=== PATIENT | male | born 1985 | race Caucasian/White ===

== ENCOUNTER 2017-01-22 13:47 | Emergency (ER) | payer SELFPAY ==
[2017-01-22 14:04] VITALS: BP 125/83
--- NOTE | 2017-01-22 14:25 | UC ---
UC General HPI - HPI Summary HPI Summary: complaint of pimple with ingrown hair that started 6 days ago he popped it approx 3 days ago and it isn't healing lip is still swollen sometimes it is painful and feels denies fever and chills denies headache - History of Current Complaint Chief Complaint: UCSkin Stated Complaint: RED SWOLLEN AREA ON LIP Time Seen by Provider: 01/22/17 14:18 Hx Obtained From: Patient - Allergy/Home Medications Allergies/Adverse Reactions: Allergies Allergy/AdvReac Type Severity Reaction Status Date / Time No Known Allergies Allergy Verified 04/25/16 16:25 Home Medications: Home Medications Buprenorphine HCl-Naloxone HCl [Suboxone 8-2 mg] 01/22/17 [History] Clonidine HCl [Catapres 0.3 MG TAB] 01/22/17 [History] Gabapentin TAB(NF) [Neurontin 600 mg TAB(NF)] 01/22/17 [History] PMH/Surg Hx/FS Hx/Imm Hx Previously Healthy: Yes - Surgical History Surgical History: Yes Surgery Procedure, Year, and Place: L rotator cuff surgery - Family History Family History: NON CONTRIBUTORY - Social History Occupation: Employed Full-time Lives: With Family Alcohol Use: None Substance Use Type: None Smoking Status (MU): Heavy Every Day Tobacco Smoker Review of Systems Constitutional: Negative Skin: Other - lip swelling Eyes: Negative ENT: Negative Respiratory: Negative Cardiovascular: Negative Gastrointestinal: Negative Genitourinary: Negative Motor: Negative Neurovascular: Negative Musculoskeletal: Negative Neurological: Negative Psychological: Negative All Other Systems Reviewed And Are Negative: Yes Physical Exam Triage Information Reviewed: Yes Appearance: No Pain Distress, Well-Nourished Vital Signs: Initial Vital Signs Temp 98.5 F 01/22/17 13:58 Pulse 84 01/22/17 13:58 Resp 16 01/22/17 13:58 BP 125/83 01/22/17 13:58 Pulse Ox 99 01/22/17 13:58 Vital Signs Reviewed: Yes Eyes: Positive: Conjunctiva Clear ENT: Positive: Pharynx normal, TMs normal Neck: Positive: No Lymphadenopathy Respiratory: Positive: Lungs clear, Normal breath sounds, No respiratory distress Cardiovascular: Positive: RRR, No Murmur Musculoskeletal Exam: Normal Neurological: Positive: Alert Psychological Exam: Normal Skin: Positive: Other - right upper lip- 1x1cm area of erythema and edema- no induration Course/Dx - Differential Dx - Multi-Symptom Provider Diagnoses: folliculitis/cellulitis upper right upper lip Discharge - Discharge Plan Condition: Stable Disposition: HOME Prescriptions: DOXYcycline CAP(*) [DOXYcycline 100MG CAP(*)] 100 mg PO BID #20 cap Mupirocin 2% OINT* [Bactroban 2 % Oint*] 1 applic TOPICAL BID #1 tube Patient Education Materials: Folliculitis (ED) Forms: *Work Release Referrals: Patricio Wright MD [Primary Care Provider] - Additional Instructions: Start antibiotic as directed apply ointment to upper lip as directed Increase fluids and rest Take acetaminophen or ibuprofen for fever or pain Please review your discharge instructions. If your symptoms do not improve please call your primary care provider or return to urgent care
== END 2017-01-22 15:10 | disposition home or self-care (01) ==
LOC: UCEAST 13:47
DX: L73.9 Follicular disorder, unspecified (principal); K13.0 Diseases of lips; F17.210 Nicotine dependence, cigarettes, uncomplicated
CPT/HCPCS: 99212; G0463

== ENCOUNTER 2017-03-07 17:36 | Emergency (ER) | payer SELFPAY ==
[2017-03-07 18:07] VITALS: BP 132/82
[2017-03-07] MEDS ORDERED: Cephalexin CAP* 500 MG PO ONE (19:14)
[2017-03-07] MEDS ORDERED: Tetan/Diph/Pertus SYR(Tdap)* 0.5 ML SYR(BOOSTRIX) use SYR IM ONE (19:14)
[2017-03-07] MEDS ORDERED: Sulfamethox/Trimethoprim DS 800/160* TAB PO ONE (19:14)
[2017-03-07] MEDS ORDERED: Naproxen TAB* 250 MG PO ONE (19:15)
--- NOTE | 2017-03-07 19:27 | UC ---
Skin Complaint HPI - HPI Summary HPI Summary: 31 male states he sustained a trivial lacertion on the dorsum of his right wrist at work days ago he has been picking at it today with increased pain/redness and swelling no f/c no n/v/d denies hx MRSA Td not up to date - History of Current Complaint Chief Complaint: UCWounds Time Seen by Provider: 03/07/17 19:09 Stated Complaint: WRIST LAC Hx Obtained From: Patient Onset/Duration: Gradual Onset, Lasting Hours Timing: Constant Onset Severity: Mild Current Severity: Moderate Pain Intensity: 6 Pain Scale Used: 0-10 Numeric Location: Discrete Character: Swelling, Pain, Redness Aggravating: Touch Associated Signs & Symptoms: Positive: Tenderness Related History: Trauma Similar Episode/Dx as: cellulitis - Allergy/Home Medications Allergies/Adverse Reactions: Allergies Allergy/AdvReac Type Severity Reaction Status Date / Time No Known Allergies Allergy Verified 03/07/17 18:03 Review of Systems Constitutional: Negative Skin: Negative Eyes: Negative ENT: Negative Respiratory: Negative Cardiovascular: Negative Gastrointestinal: Negative Genitourinary: Negative Motor: Negative Neurovascular: Negative Musculoskeletal: Negative Neurological: Negative Psychological: Negative All Other Systems Reviewed And Are Negative: Yes PMH/Surg Hx/FS Hx/Imm Hx Previously Healthy: Yes - Surgical History Surgical History: Yes Surgery Procedure, Year, and Place: L rotator cuff surgery - Family History Known Family History: Positive: Hypertension Family History: NON CONTRIBUTORY - Social History Alcohol Use: None Substance Use Type: Heroin Substance Use Comment - Amount & Last Used: Last use 03/07/17 Smoking Status (MU): Heavy Every Day Tobacco Smoker Amount Used/How Often: 1 PPD Physical Exam Triage Information Reviewed: Yes Appearance: Well-Appearing, No Pain Distress, Well-Nourished Vital Signs: Initial Vital Signs Temp 98.9 F 03/07/17 18:03 Pulse 85 03/07/17 18:03 Resp 16 03/07/17 18:03 BP 132/82 03/07/17 18:03 Pulse Ox 100 03/07/17 18:03 Vital Signs Reviewed: Yes Eyes: Positive: Conjunctiva Clear ENT: Positive: Hearing grossly normal. Negative: Nasal congestion, Nasal drainage, Trismus, Muffled/hoarse voice Neck: Positive: Supple, Nontender, No Lymphadenopathy Respiratory: Positive: Lungs clear, Normal breath sounds, No respiratory distress, No accessory muscle use Cardiovascular: Positive: RRR, No Murmur Musculoskeletal: Positive: Other: - see image Neurological: Positive: Alert Psychological: Positive: Normal Response To Family Skin Exam: Other - see image Course/Dx - Diagnoses Provider Diagnoses: left wrist cellulitus Discharge - Discharge Plan Condition: Stable Disposition: HOME Prescriptions: Cephalexin CAP* [Keflex CAP*] 500 mg PO QID #28 cap Naproxen [Naproxen 500 MG TABS] 500 mg PO BID PRN #30 tab PRN Reason: Pain Sulfamethox/Trimethoprim DS* [Bactrim DS 800/160 TAB*] 1 tab PO BID #14 tab Patient Education Materials: Cellulitis (ED) Forms: *Work Release Referrals: [facility] [place] [facility] REFERRAL [Outside] - As Soon As Possible Additional Instructions: warm soapy soaks 2-4 x day elevate elevate elevate to er for FEVER INCREASED PAIN VOMITING a wound culture is pending recheck here in 48 hours Images Hands: 1 - open area with crust 2 - redness/edema to here Front/Back of Body, Lg (Stanly): 1 - erthema /swelling, no adenopathy/no crepitus/FROM
== END 2017-03-07 19:39 | disposition home or self-care (01) ==
LOC: UCEAST 17:36
DX: S61.511A Laceration without foreign body of right wrist, initial encounter (principal); L03.113 Cellulitis of right upper limb; X58.XXXA Exposure to other specified factors, initial encounter; Y93.9 Activity, unspecified; Y92.89 Other specified places as the place of occurrence of the external cause; Y99.0 Civilian activity done for income or pay; Z23 Encounter for immunization; F17.210 Nicotine dependence, cigarettes, uncomplicated
CPT/HCPCS: 87070; 87077; 87186; 87205; 90471; 90715; 99212; A9270-GY; G0463

== ENCOUNTER 2017-03-09 11:28 | Emergency (ER) | payer OTHER ==
[2017-03-09 12:39] VITALS: BP 146/96
[2017-03-09] MEDS ORDERED: Lidocaine 2% PF * 5 ML VIAL INJ ONE (12:59)
--- NOTE | 2017-03-09 13:10 | UC ---
HPI Wound/Suture Re-check - HPI Summary HPI Summary: 31 yo male returns here as directed for recheck of right wrist infection redness and swelling has decreased but is localized now no f/c no n/v/d - History Of Current Complaint Chief Complaint: UCWounds Stated Complaint: WOUND RECHECK Time Seen by Provider: 03/09/17 12:53 Hx Obtained From: Patient Onset/Duration: Gradual Onset, Lasting Days Severity: Mild Pain Intensity: 3 - feols tight Pain Scale Used: 0-10 Numeric - Allergies/Home Medications Allergies/Adverse Reactions: Allergies Allergy/AdvReac Type Severity Reaction Status Date / Time No Known Allergies Allergy Verified 03/09/17 12:39 PMH/Surg Hx/FS Hx/Imm Hx Previously Healthy: Yes - Surgical History Surgical History: Yes Surgery Procedure, Year, and Place: L rotator cuff surgery - Family History Known Family History: Positive: Hypertension Family History: NON CONTRIBUTORY - Social History Alcohol Use: Occasionally Substance Use Type: Heroin Substance Use Comment - Amount & Last Used: Last use 03/08/17 Smoking Status (MU): Heavy Every Day Tobacco Smoker Amount Used/How Often: 1 PPD Household Exposure Type: Cigarettes Review of Systems Constitutional: Negative Skin: Negative Eyes: Negative ENT: Negative Respiratory: Negative Cardiovascular: Negative Gastrointestinal: Negative Genitourinary: Negative Motor: Negative Neurovascular: Negative Musculoskeletal: Negative Neurological: Negative Psychological: Negative All Other Systems Reviewed And Are Negative: Yes Physical Exam Triage Information Reviewed: Yes Appearance: Well-Appearing, No Pain Distress, Well-Nourished Vital Signs: Initial Vital Signs Temp 98.4 F 03/09/17 12:35 Pulse 100 03/09/17 12:35 Resp 18 03/09/17 12:35 BP 146/96 03/09/17 12:35 Pulse Ox 99 03/09/17 12:35 Eyes: Positive: Conjunctiva Clear ENT: Positive: Hearing grossly normal. Negative: Nasal congestion, Nasal drainage, Trismus, Muffled/hoarse voice Neck: Positive: Supple, Nontender Respiratory: Positive: Lungs clear, Normal breath sounds Cardiovascular: Positive: RRR, No Murmur Musculoskeletal: Positive: Other: - see image Neurological: Positive: Alert Psychological Exam: Normal Skin Exam: Other - see image Procedures - Procedure Summary Procedure Summary: INCISION AND DRAINAGE of right wrist pt came here expecting I &D time out sterile prep anest with 1 cc lidocaine incised with 18 g needle sero-sanginuous fluid expressed culture obtained sterile dressing - Incision and Drainage Site: dorsum of right wrist Anesthesia: Local Instrument(s): Needle Course/Dx - Differential Dx - Laceration/Wound Provider Diagnoses: right wrist cellulitis. early abscess Discharge - Discharge Plan Condition: Stable Disposition: HOME Patient Education Materials: Cellulitis (ED) Forms: *Work Release Additional Instructions: continue both antibiotics continue warm soaks recheck in 2 days (unless you are markedly better) Images Hands: 1 - eschar 2 - red/indurated
--- NOTE | 2017-03-12 07:42 | UC ---
Progress - Progress Note Progress Note: Cx + MRSA. Con't abx as previously prescribed. RN to call pt with cx results and MRSA precautions.
== END 2017-03-09 13:35 | disposition home or self-care (01) ==
LOC: UCEAST 11:28
DX: L03.113 Cellulitis of right upper limb (principal); L02.413 Cutaneous abscess of right upper limb; F17.210 Nicotine dependence, cigarettes, uncomplicated
CPT/HCPCS: 87070; 87077; 87186; 87205; 87640; 87641; 99211; G0463

== ENCOUNTER 2017-10-29 07:51 | Emergency (ER) | payer OTHER ==
[2017-10-29 08:02] VITALS: BP 131/81
--- NOTE | 2017-10-29 08:23 | UC ---
Skin Complaint HPI - HPI Summary HPI Summary: 32 yo WM c/o right lower cheek skin infection after popping a pimple about one week ago now red warm and swollen,tender. Denies f/c and drainage - History of Current Complaint Chief Complaint: UCSkin Time Seen by Provider: 10/29/17 08:13 Stated Complaint: RED AREA ON SIDE OF FACE Hx Obtained From: Patient Onset/Duration: Gradual Onset Skin Exposure Onset/Duration: Days Ago Onset Severity: Moderate Current Severity: Moderate - Allergy/Home Medications Allergies/Adverse Reactions: Allergies Allergy/AdvReac Type Severity Reaction Status Date / Time No Known Allergies Allergy Verified 10/29/17 07:57 Home Medications: Home Medications Buprenorphine/Naloxone SL TAB* [Suboxone 8-2 mg SL TAB*] 16 mg SL DAILY [History Confirmed 10/29/17] Review of Systems Constitutional: Negative Skin: Other - SEE HPI Eyes: Negative ENT: Negative Respiratory: Negative Cardiovascular: Negative Gastrointestinal: Negative Genitourinary: Negative Motor: Negative Neurovascular: Negative Musculoskeletal: Negative Neurological: Negative Psychological: Negative All Other Systems Reviewed And Are Negative: Yes PMH/Surg Hx/FS Hx/Imm Hx Previously Healthy: Yes - Surgical History Surgical History: Yes Surgery Procedure, Year, and Place: L rotator cuff surgery - Family History Known Family History: Positive: Hypertension Family History: NON CONTRIBUTORY - Social History Alcohol Use: None Substance Use Type: None, Heroin Substance Use Comment - Amount & Last Used: Last use 03/08/17 Smoking Status (MU): Heavy Every Day Tobacco Smoker Amount Used/How Often: 1 PPD Household Exposure Type: Cigarettes Physical Exam Triage Information Reviewed: Yes Appearance: No Pain Distress Vital Signs: Initial Vital Signs Temp 37.7 C 10/29/17 07:59 Pulse 89 10/29/17 07:59 Resp 18 10/29/17 07:59 BP 131/81 10/29/17 07:59 Pulse Ox 100 10/29/17 07:59 Eye Exam: Normal ENT Exam: Normal Dental Exam: Normal Neck exam: Normal Neck: Positive: 1 Respiratory Exam: Normal Cardiovascular Exam: Normal Abdominal Exam: Normal Musculoskeletal Exam: Normal Neurological Exam: Normal Psychological Exam: Normal Skin Exam: Normal Skin: Positive: significant lesion(s) - 3x4cm right buccal and mandibular cellulitis withe central area of skin scabbed over, no d/c noted Course/Dx - Differential Diagnoses - Skin Complaint Differential Diagnoses: Abscess, Cellulitis - Diagnoses Provider Diagnoses: facial cellulitis Discharge - Discharge Plan Condition: Critical Disposition: HOME Prescriptions: Cephalexin CAP* [Keflex CAP*] 500 mg PO QID 10 Days #40 cap Patient Education Materials: Furunculosis and Carbunculosis (ED) Referrals: No Primary Care Phys,NOPCP [Primary Care Provider] - Additional Instructions: RTC if wound becomes more fluctuant for I&D after course of abx
== END 2017-10-29 08:37 | disposition home or self-care (01) ==
LOC: UCEAST 07:51
DX: L03.211 Cellulitis of face (principal); F17.290 Nicotine dependence, other tobacco product, uncomplicated
CPT/HCPCS: 99212; G0463

== ENCOUNTER 2018-05-05 16:57 | Emergency (ER) | payer OTHER ==
--- NOTE | 2018-05-05 17:54 | RAD ---
INDICATION: Left rib pain COMPARISON: None TECHNIQUE: Multiple views of the ribs were obtained. FINDINGS: Bones: There is no evidence of acute rib fracture. LUNGS: The lungs are clear. There is no pneumothorax. Pleural spaces: There is no evidence of hemothorax. Other: None IMPRESSION: NO ACUTE RIB FRACTURE.
[2018-05-05 18:47] VITALS: BP 00/00
--- NOTE | 2018-05-05 19:22 | ED ---
Back Pain - HPI Summary HPI Summary: Patient is a 32-year-old male with no significant PMH presenting to the ED 2 weeks after left-sided upper back pain. He states pain is directly under the scapula on the left. He states he was in the back of a pickup when he strained the area going over a bump. He reinjured the area yesterday and heard a "pop." He is concerned over a rib fracture. He has been taking ibuprofen without relief. He continues to go to work and states he has to lift heavy objects for his job. - History of Current Complaint Chief Complaint: EDBackInjuryPain Stated Complaint: BACK PAIN Time Seen by Provider: 05/05/18 17:18 Hx Obtained From: Patient Onset/Duration: Sudden Onset Onset/Duration: Started Hours Ago Timing: Constant Back Pain Location: Is Discrete @ - left upper back Severity Initially: Moderate Severity Currently: Moderate Pain Intensity: 0 Pain Scale Used: 0-10 Numeric Character: Aching Alleviating Symptom(s): Rest Associated Signs And Symptoms: Negative: Swelling, Redness, Bruising - Risk Factors AAA Risk Factors: Negative TAD Risk Factors: Negative Cauda Equina Risk Factors: Negative Epidural Abscess Risk Factors: Negative - Allergies/Home Medications Allergies/Adverse Reactions: Allergies Allergy/AdvReac Type Severity Reaction Status Date / Time No Known Allergies Allergy Verified 05/05/18 17:04 PMH/Surg Hx/FS Hx/Imm Hx Previously Healthy: Yes - Surgical History Surgery Procedure, Year, and Place: L rotator cuff surgery - Immunization History Hx Pertussis Vaccination: No Immunizations Up to Date: Unable to Obtain/Confirm Infectious Disease History: No Infectious Disease History: Denies: Hx Clostridium Difficile, Hx Hepatitis, Hx Human Immunodeficiency Virus (HIV), Hx of Known/Suspected MRSA, Hx Shingles, Hx Tuberculosis, Hx Known/ Suspected VRE, Hx Known/Suspected VRSA, History Other Infectious Disease, Traveled Outside the [place] in Last 30 Days - Family History Known Family History: Positive: Hypertension Family History: NON CONTRIBUTORY - Social History Occupation: Employed Full-time Lives: With Family Alcohol Use: None Hx Substance Use: No Substance Use Type: Reports: None Substance Use Comment - Amount & Last Used: Last use 03/08/17 Hx Tobacco Use: Yes Smoking Status (MU): Heavy Every Day Tobacco Smoker Amount Used/How Often: 1 PPD Review of Systems Constitutional: Negative Negative: Fever, Chills, Fatigue, Skin Diaphoresis Negative: Palpitations Negative: Shortness Of Breath, Cough Genitourinary: Negative Positive: no symptoms reported, see HPI Positive: Arthralgia - left rib cage Skin: Negative Neurological: Negative All Other Systems Reviewed And Are Negative: Yes Physical Exam Triage Information Reviewed: Yes Vital Signs On Initial Exam: Initial Vitals Temp Pulse Resp BP Pulse Ox 98.6 F 77 14 148/66 97 05/05/18 17:00 05/05/18 17:00 05/05/18 17:00 05/05/18 17:00 05/05/18 17:00 Vital Signs Reviewed: Yes Appearance: Positive: Well-Appearing, Well-Nourished Skin: Positive: Warm, Skin Color Reflects Adequate Perfusion Head/Face: Positive: Normal Head/Face Inspection Neck: Positive: Supple, No Lymphadenopathy Respiratory/Lung Sounds: Positive: Clear to Auscultation Cardiovascular: Positive: RRR, Pulses are Symmetrical in both Upper and Lower Extremities Musculoskeletal: Positive: Strength/ROM Intact Neurological: Positive: Speech Normal Psychiatric: Positive: Normal, Affect/Mood Appropriate AVPU Assessment: Alert Diagnostics - Vital Signs Vital Signs Temp Pulse Resp BP Pulse Ox 05/05/18 18:45 0 F 0 0 00/00 0 05/05/18 17:00 98.6 F 77 14 148/66 97 - Laboratory Lab Statement: Any lab studies that have been ordered have been reviewed, and results considered in the medical decision making process. Back Pain Course/Dx - Course Course Of Treatment: During the course of treatment, the patient is evaluated for left-sided upper back pain just under the scapula. X-ray of the ribs and chest obtained which showed no acute fracture. Patient is able to abduct and abduct at the shoulder, however with some pain. I have encouraged ibuprofen and moist heat as this is likely a strain of the musculature to the area. He is requesting a note for work. - Diagnoses Differential Diagnosis/HQI/PQRI: Positive: Strain, Sprain Provider Diagnoses: Left-sided back pain Discharge - Sign-Out/Discharge Documenting (check all that apply): Discharge/Admit/Transfer - Discharge Plan Condition: Stable Disposition: HOME Forms: *Work Release Referrals: Kita Guido NP [Primary Care Provider] - Additional Instructions: Ibuprofen 600mg three times daily Moist heat to the area - Billing Disposition and Condition Condition: STABLE Disposition: Home
== END 2018-05-05 18:45 | disposition home or self-care (01) ==
LOC: ED 16:57
DX: M54.89 Other dorsalgia (principal); F17.200 Nicotine dependence, unspecified, uncomplicated
CPT/HCPCS: 99282

== ENCOUNTER 2018-10-24 09:57 | Emergency (ER) | payer BC ==
[2018-10-24 12:09] VITALS: BP 137/83
--- NOTE | 2018-10-24 12:18 | UC ---
Throat Pain/Nasal Daniel HPI - HPI Summary HPI Summary: [address], PAIN WITH SWALLOWING AND SUBJECTIVE FEVER. NO COUGH OR CONGESTION. NO N/V. - History of Current Complaint Chief Complaint: UCRespiratory Stated Complaint: THROAT PAIN Time Seen by Provider: 10/24/18 12:06 Hx Obtained From: Patient Onset/Duration: Gradual Onset, Lasting Days, Still Present Severity: Moderate Pain Intensity: 6 Pain Scale Used: 0-10 Numeric Cough: None Associated Signs & Symptoms: Positive: Fever - Allergies/Home Medications Allergies/Adverse Reactions: Allergies Allergy/AdvReac Type Severity Reaction Status Date / Time No Known Allergies Allergy Verified 05/05/18 17:04 PMH/Surg Hx/FS Hx/Imm Hx Previously Healthy: Yes - Surgical History Surgical History: Yes Surgery Procedure, Year, and Place: L rotator cuff surgery - Family History Known Family History: Positive: Hypertension - Social History Alcohol Use: None Substance Use Type: None Substance Use Comment - Amount & Last Used: Last use 03/08/17 Smoking Status (MU): Heavy Every Day Tobacco Smoker Amount Used/How Often: 1 PPD Household Exposure Type: Cigarettes Review of Systems All Other Systems Reviewed And Are Negative: Yes Constitutional: Positive: Fever ENT: Positive: Sore Throat Respiratory: Positive: Negative Cardiovascular: Positive: Negative Gastrointestinal: Positive: Negative Physical Exam Triage Information Reviewed: Yes Appearance: No Pain Distress, Well-Nourished Vital Signs: Initial Vital Signs Temp 98.8 F 10/24/18 10:03 Pulse 83 10/24/18 10:03 Resp 17 10/24/18 10:03 BP 140/89 10/24/18 10:03 Pulse Ox 100 10/24/18 10:03 Laboratory Tests 10/24/18 12:15 Group A Strep Rapid Positive A Vital Signs Reviewed: Yes Eyes: Positive: Conjunctiva Clear ENT: Positive: Hearing grossly normal, Pharyngeal erythema, TMs normal, Tonsillar swelling. Negative: Tonsillar exudate Neck: Positive: Supple, Tenderness @ - SPFL CERVICAL TENDER LAD, Enlarged Nodes @ - SPFL CERVICAL TENDER LAD Respiratory Exam: Normal Cardiovascular Exam: Normal Abdomen Description: Positive: Soft Musculoskeletal: Positive: No Edema Neurological: Positive: Alert Psychological: Positive: Age Appropriate Behavior Skin: Negative: Rashes Throat Pain/Nasal Course/Dx - Differential Dx/Diagnosis Provider Diagnosis: Strep pharyngitis Discharge - Sign-Out/Discharge Documenting (check all that apply): Patient Departure All imaging exams completed and their final reports reviewed: No Studies - Discharge Plan Condition: Stable Disposition: HOME Prescriptions: Amoxicillin PO (*) [Amoxicillin 500 MG CAP*] 1,000 mg PO DAILY #20 cap Patient Education Materials: Strep Throat (ED) Referrals: Kita Guido NP [Primary Care Provider] - If Needed Additional Instructions: STREP POSITIVE. TAKE ANTIBIOTICS FOR THE FULL 10 DAYS. OTC CHLORASEPTIC OR CEPACOL LOZENGES AND/OR IBUPROFEN FOR SORE THROAT NEEDED ONCE SYMPTOMS RESOLVED - NEW TOOTHBRUSH DO NOT SHARE FOOD, DRINK, UTENSILS - Billing Disposition and Condition Condition: STABLE Disposition: Home
== END 2018-10-24 12:25 | disposition home or self-care (01) ==
LOC: UCEAST 09:57
DX: J02.0 Streptococcal pharyngitis (principal); B95.0 Streptococcus, group A, as the cause of diseases classified elsewhere; F17.210 Nicotine dependence, cigarettes, uncomplicated
CPT/HCPCS: 87651; 99212; G0463

== ENCOUNTER 2019-11-16 16:25 | Emergency (ER) | payer BC, OTHER ==
--- NOTE | 2019-11-16 16:35 | UC ---
Dental HPI - HPI Summary HPI Summary: 34 yo male presents with dental pain. He tells me that he has a fracture left upper tooth for several months. Over the last 2-3 days has had increased pain and swelling to left upper tooth. He believes he is developing an infection here. He has been taking tylenol and ibuprofen with good relief of discomfort. He does not have a dentist, but states he has the information to call one - just hasn't done so yet. Denies fever or chills. - History of Current Complaint Stated Complaint: DENTAL PAIN Time Seen by Provider: 11/16/19 16:34 Hx Obtained From: Patient Onset/Duration: Gradual Onset Severity: Mild Pain Intensity: 2 Pain Scale Used: 0-10 Numeric - Allergies/Home Medications Allergies/Adverse Reactions: Allergies Allergy/AdvReac Type Severity Reaction Status Date / Time No Known Allergies Allergy Verified 11/16/19 16:38 PMH/Surg Hx/FS Hx/Imm Hx - Additional Past Medical History Additional PMH: None - Surgical History Surgical History: Yes Surgery Procedure, Year, and Place: L rotator cuff surgery - Family History Known Family History: Positive: Hypertension - Social History Lives: With Family Alcohol Use: None Substance Use Type: None Substance Use Comment - Amount & Last Used: Last use 03/08/17 Smoking Status (MU): Heavy Every Day Tobacco Smoker Amount Used/How Often: 1 PPD Household Exposure Type: Cigarettes Review of Systems All Other Systems Reviewed And Are Negative: No Constitutional: Positive: Negative Skin: Positive: Negative Eyes: Positive: Negative ENT: Positive: Dental Pain Respiratory: Positive: Negative Cardiovascular: Positive: Negative Neurovascular: Positive: Negative Neurological: Positive: Negative Psychological: Positive: Negative Physical Exam - Summary Physical Exam Summary: GENERAL: NAD. WDWN. No pain distress. SKIN: No rashes, sores, lesions, or open wounds. HEENT: Head: AT/NC Eyes: EOM intact. Conjunctiva clear without inflammation or discharge. Ears: Hearing grossly normal. TMs intact, no bulging, erythema, or edema. Nose: Nasal mucosa pink and moist. NTTP maxillary and frontal sinus. Throat: Posterior oropharynx without exudates, erythema, or tonsillar enlargement. Uvula midline. NECK: Supple. Nontender. No lymphadenopathy. CHEST: CTAB. No r/r/w. No accessory muscle use. Breathing comfortably and in no distress. CV: RRR. Pulses intact. Cap refill <2seconds NEURO: Alert. PSYCH: Age appropriate behavior. Triage Information Reviewed: Yes Vital Signs: Vital Signs: Temp Pulse Resp BP Pulse Ox 98 F 89 16 150/92 100 11/16/19 16:34 11/16/19 16:34 11/16/19 16:34 11/16/19 16:34 11/16/19 16:34 Vital Signs Reviewed: Yes Dental: Positive: Gross Decay/Caries @ - throughout, Dental Fracture @ - Tooth # 1 and Tooth #16, Abscess @ - Tooth #16, Cellulitis @ - Tooth #16. Negative: Cervical Lymphadenopathy, Bleeding Dental Complaint Course/Dx - Course Course Of Treatment: Tooth #16 abscess - Differential Dx/Diagnosis Provider Diagnosis: Dental abscess Discharge ED - Sign-Out/Discharge Documenting (check all that apply): Patient Departure All imaging exams completed and their final reports reviewed: No Studies - Discharge Plan Condition: Stable Disposition: HOME Prescriptions: Amoxicillin PO (*) [Amoxicillin 875 MG (*)] 875 mg PO BID #14 tab Chlorhexidine MW 0.12% 473ML* [Peridex Mouth Wash 0.12%] 15 ml MT BID #1 bottle Patient Education Materials: Dental Abscess (ED) Referrals: Kita Guido NP [Primary Care Provider] - Additional Instructions: If you develop a fever, shortness of breath, chest pain, new or worsening symptoms - please call your PCP or go to the ED immediately. Your blood pressure was high at todays visit. Please see your primary provider within 4 weeks for recheck and re-evaluation. - Billing Disposition and Condition Condition: STABLE Disposition: Home - Attestation Statements Provider Attestation: This patient was not seen by me. I was available for consult. Chart reviewed. JAMAL
[2019-11-16 16:38] VITALS: BP 150/92
== END 2019-11-16 16:54 | disposition home or self-care (01) ==
LOC: UCEAST 16:25
DX: K04.7 Periapical abscess without sinus (principal); F17.210 Nicotine dependence, cigarettes, uncomplicated
CPT/HCPCS: 99212; G0463

== ENCOUNTER 2022-08-12 22:36 | Inpatient (IN) ==
[2022-08-13 02:55] LABS: ABS Basophils 0.1 10^3/ul (0-0.2); ABS Eosinophils 0.1 10^3/ul (0-0.6); ABS Lymphocytes 1.7 10^3/ul (1.0-4.8); ABS Monocytes 1.4 10^3/ul (0-0.8); ABS Neutrophils 15.4 10^3/ul (1.5-7.7); Eosinophil % 0.4 %; Hematocrit 31 % (42-52); Hemoglobin 10.3 g/dL (14.0-18.0); Lymphocyte % 9.2 %; Mean Corpuscular HGB Conc 34 g/dL (31-36); Mean Corpuscular Hemoglobin 27 pg (27-31); Mean Corpuscular Volume 80 fL (80-94); Mean Platelet Volume 6.4 fL (7.4-10.4); Platelet Count 485 10^3/uL (150-450); Red Blood Count 3.82 10^6 /uL (4.18-5.48); Red Cell Distribution Width 14 % (10-15); White Blood Count 18.7 10^3/uL (3.5-10.8)
[2022-08-13 03:33] LABS: ALT 18 U/L (7-52); AST 17 U/L (13-39); Albumin 2.9 g/dL (3.2-5.2); Albumin/Globulin Ratio 0.7 (1-3); Alkaline Phosphatase 126 U/L (35-149); Anion Gap 10 mmol/L (2-11); Blood Urea Nitrogen 11 mg/dL (6-24); C Reactive Protein 284.67 mg/L (<8.01); CO2 Carbon Dioxide 26 mmol/L (22-32); Calcium 8.4 mg/dL (8.6-10.3); Chloride 94 mmol/L (101-111); Globulin 3.9 g/dL (2-4); Glucose 78 mg/dL (70-100); Potassium 4.3 mmol/L (3.5-5.0); Sodium 130 mmol/L (135-145); Total Protein 6.8 g/dL (6.4-8.9); eGFR CKD-EPI 124.9 (>60)
[2022-08-13] MEDS ORDERED: Vancomycin 1,000 MG in NS 0.9% 250 ml 250 ML IVPB ONE (03:47)
[2022-08-13] MEDS ORDERED: Vancomycin per Pharmacy 1 EA NOTE FOLLOW UP SCH ×2 (04:00→10:00)
[2022-08-13] MEDS ORDERED: DOXYcycline 100 MG in NS 0.9% 250 ml 250 ML IVPB SCH (05:00)
[2022-08-13] MEDS ORDERED: Lactated Ringers 1000 ml BAG 1,000 ML IV SCH (05:00)
[2022-08-13 06:43] LABS: Urine Osmo 649 mOsm/kg (150-1150)
[2022-08-13 07:59] LABS: Osmolality Serum 283 mOsm/kg (275-295)
[2022-08-13] MEDS ORDERED: Vancomycin 1,250 MG in NS 0.9% 250 ml 250 ML IVPB ONE (09:30)
[2022-08-13 09:51] LABS: Total Iron Binding Capacity 207 mcg/dL (250-450); Transferrin 148 mg/dL (203-362)
[2022-08-13] MEDS ORDERED: CEFEPIME 2 GM in Dextrose 50 mL IV SCH (10:00)
[2022-08-13] MEDS ORDERED: Cefepime ADVAN 2 GM in NS 0.9% 50 ML 50 ML IVPB SCH (10:00)
[2022-08-13 10:06] LABS: % Iron Saturation 10 % (15-55); Iron < 20 ug/dL (50-212); Unsaturated Iron Binding 187 ug/dL
[2022-08-13 10:19] LABS: Ferritin 209.5 ng/mL (24-336)
[2022-08-13] MEDS ORDERED: metroNIDAZOLE IV 500 MG/100ML 500 MG/100 ML BAG IVPB SCH (10:30)
[2022-08-13] MEDS ORDERED: Buprenorphine 2 mg SL TAB SL PRN (14:34)
[2022-08-13] MEDS: cefTRIAXone 2 gm/50 mL D5W 2 GM/50 ML BAG IV SCH (16:58)
[2022-08-13 17:20] LABS: Body Fluid Appearance Cloudy; Body Fluid Color Yellow; Body Fluid Source Pleural Fluid
[2022-08-13 18:06] LABS: Body Fluid WBC 21953 /mcL
[2022-08-13] MEDS: Vancomycin 1,250 MG in NS 0.9% 250 ml 250 ML IVPB SCH (18:16)
[2022-08-13 18:28] LABS: Body Fluid Meta 6 %; Body Fluid Total Cells Counted 200
[2022-08-13] MEDS: Enoxaparin 40 MG/0.4 ML SYR SUBCUT SCH (20:25)
[2022-08-14] MEDS: Vancomycin 1,250 MG in NS 0.9% 250 ml 250 ML IVPB SCH ×2 (00:45→08:43)
[2022-08-14] MEDS ORDERED: Vancomycin Trough Check NOTE FOLLOW UP ONE (07:30)
[2022-08-14 07:40] LABS: Hematocrit 31 % (42-52); Hemoglobin 10.2 g/dL (14.0-18.0); Mean Corpuscular HGB Conc 33 g/dL (31-36); Mean Corpuscular Hemoglobin 26 pg (27-31); Mean Corpuscular Volume 81 fL (80-94); Mean Platelet Volume 6.3 fL (7.4-10.4); Platelet Count 447 10^3/uL (150-450); Red Blood Count 3.84 10^6 /uL (4.18-5.48); Red Cell Distribution Width 14 % (10-15); White Blood Count 11.1 10^3/uL (3.5-10.8)
[2022-08-14 08:29] LABS: Calcium 8.2 mg/dL (8.6-10.3); Magnesium 2.1 mg/dL (1.9-2.7); Potassium 4.3 mmol/L (3.5-5.0); eGFR CKD-EPI 121.5 (>60)
[2022-08-14] MEDS ORDERED: Buprenorphine 2 mg SL TAB SL SCH (16:00)
[2022-08-14] MEDS: cefTRIAXone 2 gm/50 mL D5W 2 GM/50 ML BAG IV SCH (16:15)
[2022-08-14] MEDS: Enoxaparin 40 MG/0.4 ML SYR SUBCUT SCH (16:15)
[2022-08-14] MEDS: metroNIDAZOLE IV 500 MG/100ML 500 MG/100 ML BAG IVPB SCH (16:52)
[2022-08-15] MEDS: metroNIDAZOLE IV 500 MG/100ML 500 MG/100 ML BAG IVPB SCH ×2 (05:53→17:13)
[2022-08-15 07:46] LABS: Hematocrit 36 % (42-52); Hemoglobin 11.7 g/dL (14.0-18.0); Mean Corpuscular HGB Conc 33 g/dL (31-36); Mean Corpuscular Hemoglobin 27 pg (27-31); Mean Corpuscular Volume 84 fL (80-94); Red Blood Count 4.29 10^6 /uL (4.18-5.48); Red Cell Distribution Width 14 % (10-15); White Blood Count 11.9 10^3/uL (3.5-10.8)
[2022-08-15 08:20] LABS: Mean Platelet Volume 7.8 fL (7.4-10.4); Platelet Count 347 10^3/uL (150-450)
[2022-08-15 08:37] LABS: INR 1.51 (0.89-1.11)
[2022-08-15 09:12] LABS: Calcium 8.7 mg/dL (8.6-10.3); Magnesium 2.2 mg/dL (1.9-2.7); Potassium 4.8 mmol/L (3.5-5.0); eGFR CKD-EPI 123.1 (>60)
[2022-08-15] MEDS ORDERED: Ondansetron 4 mg VIAL 2 MG/ML 2 ml VIAL IV PRN ×2 (09:40→12:16)
[2022-08-15 10:52] LABS: Fluid Type, Protein, Total PLEURAL FLUID (LEFT); Total Protein, BF 5.8 g/dL
[2022-08-15 11:00] LABS: Albumin, BF 2.6 g/dL; Fluid Type, Albumin PLEURAL FLUID (LEFT)
[2022-08-15 11:10] LABS: Glucose, BF < 2 mg/dL
[2022-08-15 11:25] LABS: Lactate Dehydrogenase, BF 5790 U/L
[2022-08-15] MEDS ORDERED: fentaNYL 100 mcg/2 ml 50 MCG/ML VIAL ONE (13:42)
[2022-08-15] MEDS ORDERED: Buprenorphine 2 mg SL TAB SL PRN (14:43)
[2022-08-15] MEDS ORDERED: Alteplase (CATHFLO) 10 MG in NS 0.9% 50 ML 40 ML INTRAPLEUR SCH (18:00)
[2022-08-15] MEDS ORDERED: DORNASE ALFA 1 mg/ml(NF) 5 MG in NS 0.9% 50 ML 45 ML INTRAPLEUR SCH (18:00)
[2022-08-15] MEDS: cefTRIAXone 2 gm/50 mL D5W 2 GM/50 ML BAG IV SCH (18:26)
[2022-08-15] MEDS: Enoxaparin 40 MG/0.4 ML SYR SUBCUT SCH (18:28)
[2022-08-16] MEDS: metroNIDAZOLE IV 500 MG/100ML 500 MG/100 ML BAG IVPB SCH (05:06)
[2022-08-16 05:16] LABS: Hematocrit 35 % (42-52); Mean Corpuscular HGB Conc 34 g/dL (31-36); Mean Corpuscular Hemoglobin 28 pg (27-31); Mean Corpuscular Volume 81 fL (80-94); Mean Platelet Volume 6.5 fL (7.4-10.4); Platelet Count 650 10^3/uL (150-450); Red Blood Count 4.35 10^6 /uL (4.18-5.48); Red Cell Distribution Width 14 % (10-15); White Blood Count 10.8 10^3/uL (3.5-10.8)
[2022-08-16 05:45] LABS: Calcium 8.8 mg/dL (8.6-10.3); Magnesium 2.3 mg/dL (1.9-2.7); Potassium 4.9 mmol/L (3.5-5.0); eGFR CKD-EPI 123.7 (>60)
[2022-08-16] MEDS: DORNASE ALFA 1 mg/ml(NF) 5 MG in NS 0.9% 50 ML 45 ML INTRAPLEUR SCH ×2 (07:00→19:51)
[2022-08-16] MEDS: Alteplase (CATHFLO) 10 MG in NS 0.9% 50 ML 40 ML INTRAPLEUR SCH ×2 (07:00→19:50)
[2022-08-16] MEDS ORDERED: Nicotine GUM 4MG FRUIT FLAVOR PO PRN (08:48)
[2022-08-16] MEDS: Nicotine PATCH 21 MG/24 HR PATCH TRANSDERM SCH (09:26)
[2022-08-16] MEDS: cefTRIAXone 2 gm/50 mL D5W 2 GM/50 ML BAG IV SCH (17:43)
[2022-08-16] MEDS: Enoxaparin 40 MG/0.4 ML SYR SUBCUT SCH (17:44)
[2022-08-17 06:10] LABS: Hematocrit 36 % (42-52); Mean Corpuscular HGB Conc 34 g/dL (31-36); Mean Corpuscular Hemoglobin 27 pg (27-31); Mean Corpuscular Volume 81 fL (80-94); Mean Platelet Volume 6.5 fL (7.4-10.4); Platelet Count 659 10^3/uL (150-450); Red Blood Count 4.43 10^6 /uL (4.18-5.48); Red Cell Distribution Width 14 % (10-15)
[2022-08-17 06:33] LABS: Calcium 8.5 mg/dL (8.6-10.3); Magnesium 2.1 mg/dL (1.9-2.7); Potassium 4.7 mmol/L (3.5-5.0); eGFR CKD-EPI 124.9 (>60)
[2022-08-17] MEDS ORDERED: fentaNYL 100 mcg/2 ml 50 MCG/ML VIAL IV SLOW PU ONE (07:37)
[2022-08-17] MEDS: DORNASE ALFA 1 mg/ml(NF) 5 MG in NS 0.9% 50 ML 45 ML INTRAPLEUR SCH ×2 (08:00→19:43)
[2022-08-17] MEDS: Alteplase (CATHFLO) 10 MG in NS 0.9% 50 ML 40 ML INTRAPLEUR SCH ×2 (08:00→19:42)
[2022-08-17] MEDS: Nicotine PATCH 21 MG/24 HR PATCH TRANSDERM SCH (10:11)
[2022-08-17] MEDS: Enoxaparin 40 MG/0.4 ML SYR SUBCUT SCH (18:17)
[2022-08-17] MEDS: cefTRIAXone 2 gm/50 mL D5W 2 GM/50 ML BAG IV SCH (18:18)
[2022-08-17] MEDS: fentaNYL 100 mcg/2 ml 50 MCG/ML VIAL IV SLOW PU PRN (19:18)
[2022-08-18 06:05] LABS: Hematocrit 34 % (42-52); Hemoglobin 11.5 g/dL (14.0-18.0); Mean Corpuscular HGB Conc 34 g/dL (31-36); Mean Corpuscular Hemoglobin 28 pg (27-31); Mean Corpuscular Volume 81 fL (80-94); Mean Platelet Volume 6.6 fL (7.4-10.4); Platelet Count 674 10^3/uL (150-450); Red Blood Count 4.19 10^6 /uL (4.18-5.48); Red Cell Distribution Width 14 % (10-15); White Blood Count 11.8 10^3/uL (3.5-10.8)
[2022-08-18 06:15] LABS: Calcium 8.8 mg/dL (8.6-10.3); Magnesium 2.1 mg/dL (1.9-2.7); Potassium 4.8 mmol/L (3.5-5.0)
[2022-08-18 06:21] LABS: eGFR CKD-EPI 129.4 (>60)
[2022-08-18] MEDS: DORNASE ALFA 1 mg/ml(NF) 5 MG in NS 0.9% 50 ML 45 ML INTRAPLEUR SCH (07:28)
[2022-08-18] MEDS: Alteplase (CATHFLO) 10 MG in NS 0.9% 50 ML 40 ML INTRAPLEUR SCH (07:28)
[2022-08-18] MEDS: Nicotine PATCH 21 MG/24 HR PATCH TRANSDERM SCH (09:54)
[2022-08-18] MEDS: Enoxaparin 40 MG/0.4 ML SYR SUBCUT SCH (17:17)
[2022-08-18] MEDS: cefTRIAXone 2 gm/50 mL D5W 2 GM/50 ML BAG IV SCH (17:17)
[2022-08-18] MEDS ORDERED: Alteplase (CATHFLO) 10 MG in NS 0.9% 50 ML 40 ML INTRAPLEUR SCH (19:00)
[2022-08-18] MEDS ORDERED: DORNASE ALFA 1 mg/ml(NF) 5 MG in NS 0.9% 50 ML 45 ML INTRAPLEUR SCH (19:00)
[2022-08-18] MEDS: fentaNYL 100 mcg/2 ml 50 MCG/ML VIAL IV SLOW PU PRN (19:10)
[2022-08-18] MEDS ORDERED: Morphine 2 MG/ML SYRINGE IV ONE (19:22)
[2022-08-19 06:38] LABS: ABS Basophils 0.1 10^3/ul (0-0.2); ABS Eosinophils 0.3 10^3/ul (0-0.6); ABS Lymphocytes 1.6 10^3/ul (1.0-4.8); ABS Monocytes 0.5 10^3/ul (0-0.8); ABS Neutrophils 6.9 10^3/ul (1.5-7.7); Eosinophil % 3.6 %; Hematocrit 33 % (42-52); Hemoglobin 11.1 g/dL (14.0-18.0); Lymphocyte % 16.9 %; Mean Corpuscular HGB Conc 33 g/dL (31-36); Mean Corpuscular Hemoglobin 27 pg (27-31); Mean Corpuscular Volume 80 fL (80-94); Mean Platelet Volume 6.6 fL (7.4-10.4); Platelet Count 730 10^3/uL (150-450); Red Blood Count 4.12 10^6 /uL (4.18-5.48); Red Cell Distribution Width 14 % (10-15); White Blood Count 9.5 10^3/uL (3.5-10.8)
[2022-08-19 06:58] LABS: Calcium 8.8 mg/dL (8.6-10.3); Magnesium 2.2 mg/dL (1.9-2.7); Potassium 4.9 mmol/L (3.5-5.0); eGFR CKD-EPI 129.4 (>60)
[2022-08-19] MEDS: Nicotine PATCH 21 MG/24 HR PATCH TRANSDERM SCH (08:10)
[2022-08-19] MEDS ORDERED: Iohexol 350 (CONTRAST) 500 ML MDV IV ONE (10:04)
[2022-08-19] MEDS: Enoxaparin 40 MG/0.4 ML SYR SUBCUT SCH (16:26)
[2022-08-19] MEDS: cefTRIAXone 2 gm/50 mL D5W 2 GM/50 ML BAG IV SCH (16:27)
[2022-08-19] MEDS ORDERED: Naloxone 0.4 mg VIAL 0.4 mg/ml 1 ml VIAL IV PUSH PRN (22:39)
[2022-08-19] MEDS: Morphine ER 30 mg TAB ** extended release PO SCH (23:35)
[2022-08-20 06:55] LABS: Hematocrit 31 % (42-52); Hemoglobin 10.8 g/dL (14.0-18.0); Mean Corpuscular HGB Conc 34 g/dL (31-36); Mean Corpuscular Hemoglobin 27 pg (27-31); Mean Corpuscular Volume 80 fL (80-94); Mean Platelet Volume 6.5 fL (7.4-10.4); Platelet Count 764 10^3/uL (150-450); Red Blood Count 3.93 10^6 /uL (4.18-5.48); Red Cell Distribution Width 14 % (10-15); White Blood Count 9.7 10^3/uL (3.5-10.8)
[2022-08-20 07:05] LABS: Calcium 8.9 mg/dL (8.6-10.3); Magnesium 2.1 mg/dL (1.9-2.7); Potassium 4.6 mmol/L (3.5-5.0); eGFR CKD-EPI 130.1 (>60)
[2022-08-20] MEDS ORDERED: Morphine 4 MG/ML VIAL (1 ml) IV PRN ×2 (07:27→18:39)
[2022-08-20] MEDS: Nicotine PATCH 21 MG/24 HR PATCH TRANSDERM SCH (08:34)
[2022-08-20] MEDS ORDERED: Lorazepam PYXIS KEY PRN (09:48)
[2022-08-20] MEDS ORDERED: LORazepam 2 mg VIAL 1 ml IV PUSH ONE (09:48)
[2022-08-20] MEDS: Morphine ER 30 mg TAB ** extended release PO SCH (09:58)
[2022-08-20] MEDS: Morphine 4 MG/ML VIAL (1 ml) IV PRN ×2 (12:17→16:18)
[2022-08-20] MEDS ORDERED: DALBAVANCIN HCL (NF) 500 MG/25 ML VIAL IVPB ONE (16:33)
[2022-08-20] MEDS ORDERED: cefTRIAXone 2 gm/50 mL D5W 2 GM/50 ML BAG IV SCH (17:00)
[2022-08-20] MEDS ORDERED: Morphine ER 30 mg TAB ** extended release PO SCH (18:00)
[2022-08-20] MEDS: Enoxaparin 40 MG/0.4 ML SYR SUBCUT SCH (18:27)
[2022-08-21 06:19] LABS: Hematocrit 36 % (42-52); Mean Corpuscular HGB Conc 33 g/dL (31-36); Mean Corpuscular Hemoglobin 27 pg (27-31); Mean Corpuscular Volume 81 fL (80-94); Mean Platelet Volume 6.5 fL (7.4-10.4); Platelet Count 716 10^3/uL (150-450); Red Blood Count 4.46 10^6 /uL (4.18-5.48); Red Cell Distribution Width 14 % (10-15); White Blood Count 6.1 10^3/uL (3.5-10.8)
[2022-08-21 06:36] VITALS: BP 124/81
[2022-08-21 06:47] LABS: Calcium 8.9 mg/dL (8.6-10.3); Magnesium 2.2 mg/dL (1.9-2.7); Potassium 4.5 mmol/L (3.5-5.0)
[2022-08-21] MEDS: Nicotine PATCH 21 MG/24 HR PATCH TRANSDERM SCH (08:26)
[2022-08-21] MEDS ORDERED: DALVANCE 1500 MG IV ONCE (for CrCl >/= 30 or regular HD) IVPB ONE (10:00)
== END 2022-08-21 11:36 | disposition home or self-care (01) | DRG 720 ==
LOC: EDHOLD 22:36 → ED 22:36 → SUATTDRO 08-13 03:45 → MED 08-13 18:49 → SUATTDRO 08-15 10:55
PROVIDERS: ADMIT Internal Medicine; ATTEND Internal Medicine

== ENCOUNTER 2023-08-10 00:01 | Inpatient (IN) ==
[2023-08-10] MEDS ORDERED: Lactated Ringers 1000 ml BAG 1,000 ML IV ONE ×2 (00:33→05:08)
[2023-08-10] MEDS ORDERED: Ondansetron 4 mg VIAL 2 MG/ML 2 ml VIAL IV ONE (00:33)
[2023-08-10] MEDS ORDERED: cefTRIAXone 1 gm/50 mL D5W 1 GM/50 ML BAG IV ONE (01:07)
[2023-08-10 02:00] LABS: ABS Lymphocytes 0.5 10^3/uL (1.0-4.8); ABS Monocytes 0.4 10^3/uL (0.0-1.1); ABS Neutrophils 5.8 10^3/uL (1.5-7.6); ABS Nucleated RBC 0.02 10^3/ul; Hematocrit 32.1 % (38-53); Hemoglobin 11.3 g/dL (13.2-16.3); Lymphocyte % 7.6 %; Mean Corpuscular Hemoglobin 28.8 pg (27-33); Mean Corpuscular Hgb Conc 35.2 g/dL (31-36); Mean Corpuscular Volume 81.8 fL (80-97); Mean Platelet Volume 7.6 fL (7.5-11.2); Nucleated Red Blood Cells % 0.3 %/100WBC (0.0-0.8); Platelet Count 105 10^3/uL (150-450); Red Blood Count 3.92 10^6/uL (4.06-5.63); White Blood Count 6.7 10^3/uL (3.6-10.2)
[2023-08-10 02:04] LABS: Calcium 8.8 mg/dL (8.6-10.3); Potassium 5.1 mmol/L (3.5-5.0); Total Bilirubin 0.9 mg/dL (0.2-1.0)
[2023-08-10 02:10] LABS: Albumin/Globulin Ratio 1.1 (1-3); C Reactive Protein 291.74 mg/L (<8.01); Creatinine, Serum 1.7 mg/dL (0.67-1.17); Globulin 3.5 g/dL (2-4); Total Protein 7.5 g/dL (6.4-8.9); eGFR CKD-EPI 51.9 (>60)
[2023-08-10] MEDS ORDERED: Norepinephrine 16MCG/ML BAGD5W 4,000 MCG/250 ML BAG IV SCH (05:00)
[2023-08-10] MEDS ORDERED: Cefepime 1 GM in Dextrose 1 GM/50 ML BAG IV ONE ×2 (05:09→06:10)
[2023-08-10] MEDS ORDERED: Vancomycin 1,500 MG in NS 0.9% 250 ml 250 ML IVPB ONE (05:52)
[2023-08-10] MEDS ORDERED: Norepinephrine 16MCG/ML BAGD5W 4,000 MCG/250 ML BAG IV ONE (06:00)
[2023-08-10] MEDS ORDERED: Iohexol 300 (CONTRAST) 10 ML SDV IV ONE (06:10)
[2023-08-10] MEDS ORDERED: Iodixanol (CONTRAST) 320 MG/ML 100 ML SDV IV ONE (06:24)
[2023-08-10] MEDS ORDERED: Vancomycin per Pharmacy 1 EA NOTE FOLLOW UP SCH (07:00)
[2023-08-10] MEDS ORDERED: NS 0.9% 1000 ml BAG 1,000 ML IV SCH (07:00)
[2023-08-10 08:23] LABS: Calcium 7.3 mg/dL (8.6-10.3); Potassium 3.8 mmol/L (3.5-5.0)
[2023-08-10 08:28] LABS: Creatinine, Serum 1.73 mg/dL (0.67-1.17); eGFR CKD-EPI 50.9 (>60)
[2023-08-10 12:48] LABS: Urine Appearance Cloudy; Urine Bilirubin Negative (Negative); Urine Blood 3+ (Negative); Urine Color Yellow; Urine Glucose Negative (Negative); Urine Ketones Negative (Negative); Urine Nitrite Negative (Negative); Urine Protein 1+(30 mg/dL) (Negative); Urine Specific Gravity 1.025 (1.002-1.030); Urine Urobilinogen Negative (Negative)
[2023-08-10 12:55] LABS: Urine Amorphous Crystals Present (Absent); Urine Bacteria 1+ (Absent); Urine Red Blood Cell 3+(>10/hpf) (Absent); Urine White Blood Cell 2+(11-20/hpf) (Absent)
[2023-08-10 13:17] LABS: Urine Benzodiazepine Screen Presumptive Positive (None Detect); Urine Cannabinoids Screen Presumptive Positive (None Detect); Urine Opiates Screen None Detected (None Detect)
[2023-08-10] MEDS: Cefepime 2 GM in Dextrose 2 GM/50 ML BAG IV SCH (17:20)
[2023-08-10] MEDS: Vancomycin 1,000 MG in NS 0.9% 250 ml 250 ML IVPB SCH (18:01)
[2023-08-11] MEDS: Cefepime 2 GM in Dextrose 2 GM/50 ML BAG IV SCH (05:36)
[2023-08-11] MEDS: Vancomycin 1,000 MG in NS 0.9% 250 ml 250 ML IVPB SCH (06:25)
[2023-08-11 07:11] LABS: Calcium 8.5 mg/dL (8.6-10.3); Creatinine, Serum 1.2 mg/dL (0.67-1.17); Potassium 4.6 mmol/L (3.5-5.0); eGFR CKD-EPI 78.9 (>60)
[2023-08-11 07:57] LABS: ABS Lymphocytes 0.6 10^3/uL (1.0-4.8); ABS Monocytes 0.1 10^3/ul (0.0-1.1); ABS Monocytes 0.8 10^3/uL (0.0-1.1); ABS Neutrophils 5.8 10^3/uL (1.5-7.6); ABS Neutrophils 6.3 10^3/ul (1.5-7.6); ABS Nucleated RBC 0.02 10^3/ul; Eosinophil % 0.3 %; Hematocrit 28.9 % (38-53); Hemoglobin 10.3 g/dL (13.2-16.3); Lymphocyte % 8.6 %; Mean Corpuscular Hemoglobin 28.5 pg (27-33); Mean Corpuscular Hgb Conc 35.5 g/dL (31-36); Mean Corpuscular Volume 80.2 fL (80-97); Nucleated Red Blood Cells % 0.3 %/100WBC (0.0-0.8); RBC Morphology Normal (Normal); Red Cell Distribution Width 15.4 % (12-17); White Blood Count 7.3 10^3/uL (3.6-10.2)
[2023-08-11] MEDS ORDERED: NS 0.9% 1000 ml BAG 1,000 ML IV SCH (12:45)
[2023-08-11 13:12] VITALS: BP 109/69
[2023-08-11] MEDS ORDERED: Vancomycin Trough Check NOTE FOLLOW UP ONE (18:00)
== END 2023-08-11 16:20 | disposition left against medical advice (07) | DRG 720 ==
LOC: ED 00:01 → EDHOLD 06:16 → SUATTDRO 06:16 → EDHOLD 13:50 → MED 14:03
PROVIDERS: ADMIT Hospitalist; ATTEND Hospitalist